=== PATIENT | female | born 1985 | race Caucasian/White ===

== ENCOUNTER 2017-11-02 20:13 | Emergency (ER) | payer SELFPAY ==
[~2017-11-02] VITALS: Ht 154.9 cm; Wt 55.0 kg
[2017-11-02 20:22] VITALS: BP 118/61; PULSE 75; RESP 16; TEMP 98.5; O2SAT 98
== END 2017-11-02 21:00 | disposition left against medical advice (07) ==
LOC: NETRI 20:13
DX: M25.549 Pain in joints of unspecified hand (principal); Z53.21 Procedure and treatment not carried out due to patient leaving prior to being seen by health care provider
CPT/HCPCS: 99281